=== PATIENT | female | born 1940 | race Caucasian/White ===

== ENCOUNTER → 2016-11-11 | Outpatient (CLI) | payer OTHER ==
[~2016-11-11] MED LIST: ASPI81TA28 PO; CALC-20 PO; HYDR-5688 PO; LEVO75TA5 PO; LPT40 PO; OMEG12006 PO
[2016-11-11 11:34] LABS: AST/SGOT 20 U/L (15-37); BLOOD UREA NITROGEN 19 mg/dl (7-18); BUN/CREATININE RATIO 19.5 (10-20); CALCIUM 9.4 mg/dl (8.5-10.1); CARBON DIOXIDE 25 mmol/L (21-32); CHLORIDE 106 mmol/L (98-107); GLUCOSE 86 mg/dl (70-99); SODIUM 141 mmol/L (136-145)
[2016-11-11 11:46] LABS: ALB/GLOB RATIO 1.1 (0.9-2); ALKALINE PHOSPHATASE 182 U/L (45-117); ALT/SGPT 30 U/L (12-78); CHOLESTEROL 157 mg/dl (0-200); CHOLESTEROL/HDL RATIO 2.3; HDL CHOLESTEROL 69 mg/dl; LDL CHOLESTEROL CALCULATED 76 mg/dl; TRIGLYCERIDES 58 mg/dl (0-150); VERY LOW DENSITY LIPOPROT CALC 12 mg/dl
== END | disposition home or self-care (01) ==
LOC: C.LABBC 08:40
PROVIDERS: ATTEND Internal Medicine Geriatric Medicine
DX: E78.5 Hyperlipidemia, unspecified (principal); E03.9 Hypothyroidism, unspecified

== ENCOUNTER → 2016-11-16 | Outpatient (CLI) | payer OTHER | END | disposition home or self-care (01) | LOC: C.LABBC 12:50 | PROVIDERS: ATTEND Internal Medicine Geriatric Medicine | DX: R74.8 Abnormal levels of other serum enzymes (principal) ==

== ENCOUNTER → 2016-11-26 | Outpatient (CLI) | payer OTHER ==
--- NOTE | 2016-11-26 09:54 | DIAGNOSTIC IMAGING REPORT ---
ULTRASOUND RIGHT UPPER QUADRANT ABDOMEN CLINICAL HISTORY: Elevated hepatic transaminases. COMPARISON STUDY: Abdominal CT dated 02/03/2016. TECHNIQUE: Real-time, grayscale, and color flow sonography of the right upper quadrant of the abdomen was performed. Images are reviewed in the transverse and longitudinal planes. FINDINGS: Liver: The liver is normal in size and echotexture. There is no intrahepatic biliary ductal dilatation. The main portal vein is patent. An 8 mm cyst is incidentally noted in the left lobe adjacent to gallbladder fossa. Gallbladder: The gallbladder is contracted. A 3 mm nonshadowing stone or sludge ball is identified. No shadowing stones are seen. There is no gallbladder wall thickening or pericholecystic fluid. A sonographic Camarena's sign is reportedly absent. The common bile duct measures up to 0.6 cm in diameter. Pancreas: Visualized portions of the pancreatic head and body are normal in appearance. Right kidney: Survey images of the right kidney demonstrate normal size and echotexture. There is no hydronephrosis. Ascites: None. IMPRESSION: 1. The liver is normal in size and echotexture. 2. There is a 3 mm sludge ball versus nonshadowing gallstone. The gallbladder is otherwise normal in appearance. Electronically signed by: Pernell Montanez M.D. 11/26/2016 9:53 AM Dictated Date/Time: 11/26/2016 9:51 AM
== END | disposition home or self-care (01) ==
LOC: C.ULTRBC 08:50
PROVIDERS: ATTEND Internal Medicine Geriatric Medicine
DX: R74.8 Abnormal levels of other serum enzymes (principal)

== ENCOUNTER → 2016-11-29 | Outpatient (CLI) | payer OTHER ==
--- NOTE | 2016-11-30 16:37 | MAMMOGRAPHY REPORT ---
BILATERAL DIGITAL SCREENING MAMMOGRAM TOMOSYNTHESIS WITH CAD: 11/29/2016 CLINICAL HISTORY: Routine screening examination. TECHNIQUE: Breast tomosynthesis in addition to standard 2D mammography was performed. Current study was also evaluated with a Computer Aided Detection (CAD) system. COMPARISON: Comparison is made to exams dated: 10/09/2015 mammogram, 10/07/2014 mammogram, 10/04/2013 mammogram, and 09/02/2011 mammogram - [facility]. BREAST COMPOSITION: There are scattered areas of fibroglandular density in both breasts. FINDINGS: The parenchymal pattern is unchanged. No developing mass, architectural distortion or clu ster of suspicious microcalcifications is seen in either breast. There are scattered benign coarse calcifications in the breasts. IMPRESSION: ACR BI-RADS CATEGORY 2: BENIGN There is no mammographic evidence of malignancy. A 1 year screening mammogram is recommended. The p atient will receive written notification of the results. Approximately 10% of breast cancers are not detected with mammography. A negative mammographic repor t should not delay biopsy if a clinically suggestive mass is present. Ileana Torrez M.D. ay/:11/30/2016 16:29:55 Recruiter: Norma JENKINS)([place]), [facility] letter sent: Normal 1/2 BI-RADS Code: ACR BI-RADS Category 2: Benign
== END | disposition home or self-care (01) ==
LOC: C.MAMM 11:26
PROVIDERS: ATTEND Internal Medicine Geriatric Medicine
DX: Z12.31 Encounter for screening mammogram for malignant neoplasm of breast (principal)

== ENCOUNTER → 2016-12-13 | Outpatient (CLI) | payer OTHER ==
--- NOTE | 2016-12-21 13:06 | CODING QUERY MEDICAL NECESSITY ---
SUPPORTING DIAGNOSIS NEEDED Dr. rFey, A supporting diagnosis is required for the test/procedure performed on this patient in order for us to be reimbursed by the patient's insurance. Please provide a supporting diagnosis for the following test/procedure listed below next to the test name along with your signature. *If there is no additional diagnosis for this patient that would support the following test/procedure please document that below next to the test/procedure. Test(s)/Procedure(s) that require a supporting diagnosis: * ([id number]) DXA BONE DENSITY, AXIAL DIAGNOSIS: DATE OF SERVICE: 12/13/16 Provider Signature: Date: Thank you Joseph Reynolds [facility] Information Management Once completed, please kindly fax back to [phone] For questions please call [phone]
== END | disposition home or self-care (01) ==
LOC: C.MAMM 13:48
PROVIDERS: ATTEND Internal Medicine Geriatric Medicine
DX: S52.90XA Unspecified fracture of unspecified forearm, initial encounter for closed fracture (principal); X58.XXXA Exposure to other specified factors, initial encounter

== ENCOUNTER → 2017-06-27 | Outpatient (CLI) | payer OTHER ==
[~2017-06-27] MED LIST changes: -HYDR-5688 PO
[2017-06-27 14:22] LABS: ALT/SGPT 22 U/L (12-78); BLOOD UREA NITROGEN 25 mg/dl (7-18); BUN/CREATININE RATIO 25.4 (10-20); CALCIUM 9.6 mg/dl (8.5-10.1); CARBON DIOXIDE 26 mmol/L (21-32); CHLORIDE 106 mmol/L (98-107); GLUCOSE 79 mg/dl (70-99); POTASSIUM 4.2 mmol/L (3.5-5.1); SODIUM 140 mmol/L (136-145)
[2017-06-27 14:32] LABS: ALKALINE PHOSPHATASE 73 U/L (45-117); AST/SGOT 21 U/L (15-37); THYROID STIMULATING HORMONE 0.555 uIu/ml (0.300-4.500)
== END | disposition home or self-care (01) ==
LOC: C.LABBC 10:23
PROVIDERS: ATTEND Internal Medicine Geriatric Medicine
DX: E03.9 Hypothyroidism, unspecified (principal); E55.9 Vitamin D deficiency, unspecified; R74.8 Abnormal levels of other serum enzymes

== ENCOUNTER → 2017-10-26 | Outpatient (CLI) | payer OTHER ==
[2017-11-02 14:49] LABS: HERPES SIMPLEX VIRUS CULT NOT ISOLATED (NOT ISOLATED); VARICELLA ZOS VIR IGM AB <=0.90 (<=0.90)
== END | disposition home or self-care (01) ==
LOC: C.LAB1850 14:45
PROVIDERS: ATTEND Obstetrics & Gynecology
DX: N90.89 Other specified noninflammatory disorders of vulva and perineum (principal)

== ENCOUNTER → 2017-10-26 | Outpatient (CLI) | payer OTHER | END | disposition home or self-care (01) | LOC: C.PATHSPEC 16:10 | PROVIDERS: ATTEND Obstetrics & Gynecology | DX: N90.89 Other specified noninflammatory disorders of vulva and perineum (principal) ==

== ENCOUNTER → 2017-12-30 | Outpatient (CLI) | payer OTHER | END | disposition home or self-care (01) | LOC: C.LABSPEC 15:53 | PROVIDERS: ATTEND Obstetrics & Gynecology | DX: N89.8 Other specified noninflammatory disorders of vagina (principal) ==

== ENCOUNTER → 2018-01-13 | Outpatient (CLI) | payer OTHER ==
[2018-01-13 16:41] LABS: BASO % 0.4 %; BASO ABS # 0.02 K/uL (0-0.2); EOS % 5.1 %; EOS ABS # 0.26 K/uL (0-0.5); HEMATOCRIT 40.5 % (37-47); HEMOGLOBIN 13.4 g/dL (12.0-16.0); IG# 0.02 K/uL (0.00-0.02); LYMPH % 26.7 %; LYMPH ABS # 1.35 K/uL (1.2-3.4); MEAN CELL VOLUME 92.7 fL (80-100); MEAN CORPUSCULAR HEMOGLOBIN 30.7 pg (25-34); MEAN CORPUSCULAR HGB CONC 33.1 g/dl (32-36); MEAN PLATELET VOLUME 8.6 fL (7.4-10.4); MONO % 9.3 %; MONO ABS # 0.47 K/uL (0.11-0.59); NEUT % 58.1 %; NEUT ABS # 2.93 K/uL (1.4-6.5); PLATELET COUNT 246 K/uL (130-400); RED CELL DISTRIBUTION WIDTH CV 13.4 % (11.5-14.5); RED CELL DISTRIBUTION WIDTH SD 45.6 fL (36.4-46.3); WHITE BLOOD COUNT 5.05 K/uL (4.8-10.8)
[2018-01-13 17:13] LABS: ALBUMIN 3.6 gm/dl (3.4-5.0); AST/SGOT 24 U/L (15-37); BLOOD UREA NITROGEN 19 mg/dl (7-18); CARBON DIOXIDE 26 mmol/L (21-32); CREATININE 0.98 mg/dl (0.60-1.20); GLUCOSE 83 mg/dl (70-99); POTASSIUM 4.1 mmol/L (3.5-5.1); SODIUM 139 mmol/L (136-145)
[2018-01-13 17:25] LABS: ALKALINE PHOSPHATASE 82 U/L (45-117); ALT/SGPT 36 U/L (12-78); CHOLESTEROL 188 mg/dl (0-200); LDL CHOLESTEROL CALCULATED 97 mg/dl; TOTAL PROTEIN 7.1 gm/dl (6.4-8.2)
== END | disposition home or self-care (01) ==
LOC: C.LABBC 12:42
PROVIDERS: ATTEND Internal Medicine Geriatric Medicine
DX: E78.5 Hyperlipidemia, unspecified (principal); E03.9 Hypothyroidism, unspecified; M19.90 Unspecified osteoarthritis, unspecified site; K82.8 Other specified diseases of gallbladder

== ENCOUNTER → 2018-02-24 | Outpatient (CLI) | payer OTHER ==
--- NOTE | 2018-02-27 07:50 | MAMMOGRAPHY REPORT ---
BILATERAL DIGITAL SCREENING MAMMOGRAM TOMOSYNTHESIS WITH CAD: 02/24/2018 CLINICAL HISTORY: Routine screening. Patient has no complaints. TECHNIQUE: Breast tomosynthesis in addition to standard 2D mammography was performed. Current study was also evaluated with a Computer Aided Detection (CAD) system. COMPARISON: Comparison is made to exams dated: 11/29/2016 mammogram, 10/09/2015 mammogram, 10/07/2014 mammogram, 10/04/2013 mammogram, 09/27/2012 mammogram, and 09/02/2011 mammogram - [facility]. BREAST COMPOSITION: There are scattered areas of fibroglandular density in both breasts. FINDINGS: No suspicious masses, calcifications, or areas of architectural distortion are noted in ei ther breast. There has been no significant interval change compared to prior exams. Scattered bilater al benign-appearing calcifications are not significantly changed. IMPRESSION: ACR BI-RADS CATEGORY 2: BENIGN There is no mammographic evidence of malignancy. A 1 year screening mammogram is recommended. The pa tient will receive written notification of the results. Approximately 10% of breast cancers are not detected with mammography. A negative mammographic report should not delay biopsy if a clinically suggestive mass is present. Corazon Villegas M.D. /:02/24/2018 12:14:34 Brusher Tender: Do JENKINS)(M), [facility] letter sent: Normal 1/2 BI-RADS Code: ACR BI-RADS Category 2: Benign
== END | disposition home or self-care (01) ==
LOC: C.MAMM 11:33
PROVIDERS: ATTEND Internal Medicine Geriatric Medicine
DX: Z12.31 Encounter for screening mammogram for malignant neoplasm of breast (principal)

== ENCOUNTER 2018-03-06 14:26 | Inpatient (IN) | payer OTHER ==
[2018-02-28 09:55] VITALS: BMI 26.0
[~2018-03-06] VITALS: Ht 157.5 cm; Wt 67.1 kg
[2018-03-06 14:44] VITALS: BMI 26.0
--- NOTE | 2018-03-06 14:56 | Endo History and Physical ---
History & Physical Date of Service: March 06, 2018. Chief Complaint: ABDOMINAL PAIN Referring Physician: DR. LOURDES [place] History of Present Illness 78 yo CF who presents for colonoscopy secondary to mid-abdominal pain. Past Surgical History Hx Cardiac Surgery: No Hx Internal Defibrillator: No Hx Pacemaker: No Hx Abdominal Surgery: Yes (D/C 40+, APPY, CINDY) Hx of Implantable Prosthesis: No Hx Cancer Surgery: No Hx Thoracic Surgery: No Hx Orthopedic: Yes (L WRIST-PLATE/SCREWS) Hx Urinary Tract Surgery: No Family History Colon CA, Polyp Social History Smoking Status: Never Smoker Hx Substance Use: No Hx Alcohol Use: No Allergies Coded Allergies: No Known Allergies (Unverified , 03/06/18) Current Medications Reported Home Medications Medications Dose Route/Sig Max Daily Dose Days Date Category Calcium 600 + D (Calcium Carbonate-Vitamin D) Unknown Strength Tab 2 Tab PO DAILY 08/17/16 Reported Aspirin Ec (Aspirin) 81 Mg Tab 81 Mg PO DAILY 08/17/16 Reported [place] 3 ([place]-3 Fatty Acids) 1 Cap Cap 2 Cap PO DAILY 08/17/16 Reported Lipitor (Atorvastatin Calcium) 40 Mg Tab 40 Mg PO DAILY 08/17/16 Reported Levothyroxine Sodium 75 Mcg Tab 75 Mcg PO DAILY 02/03/16 Reported Vital Signs Weight (Kilograms): 65.45 Height (Feet): 5 Height (Inches): 2 Physical Exam General Appearance: WD/WN, no apparent distress Respiratory/Chest: Auscultation: breath sounds normal Cardiovascular: Heart Auscultation: RRR Abdomen: Bowel Sounds: normal Inspection & Palpation: soft, non-distended, no tenderness, guarding & rebound Assessment and Plan Assessment: 78 yo CF who presents for colonoscopy secondary to mid-abdominal pain. Plan: Proceed with colonoscopy.
--- NOTE | 2018-03-06 16:03 | Discharge Instructions ---
Endoscopy Patient Instructions Date / Procedure(s) Performed March 06, 2018. Colonoscopy Allergy Information Coded Allergies: No Known Allergies (Unverified , 03/06/18) Discharge Date / Findings March 06, 2018. Sigmoid Colon mass s/p biopsies and tattoo Internal hemorrhoids Medication Instructions OK to resume all medications today as prescribed Reported Home Medications Medications Dose Route/Sig Max Daily Dose Days Date Category Calcium 600 + D (Calcium Carbonate-Vitamin D) Unknown Strength Tab 2 Tab PO DAILY 08/17/16 Reported Aspirin Ec (Aspirin) 81 Mg Tab 81 Mg PO DAILY 08/17/16 Reported [place] 3 ([place]-3 Fatty Acids) 1 Cap Cap 2 Cap PO DAILY 08/17/16 Reported Lipitor (Atorvastatin Calcium) 40 Mg Tab 40 Mg PO DAILY 08/17/16 Reported Levothyroxine Sodium 75 Mcg Tab 75 Mcg PO DAILY 02/03/16 Reported Provider Instructions Activity Restrictions - No exercising or heavy lifting for 24 hours. - Do not drink alcohol the day of the procedure. - Do not drive a car or operate machinery until the day after the procedure. - Do not make any important decisions or sign important papers in 24 hours after the procedure. Following Day: - Return to full activity which may include returning to work/school. Diet Start your diet with liquids and light foods (jello, soup, juice, toast). Then eat your usual diet if not nauseated. Treatment For Common After Affects For mild abdominal pain, bloating, or excessive gas: - Rest - Eat lightly - Lie on right side Follow-Up Information Recommend patient be admitted to [facility] for further evaluation Anesthesia Information What You Should Know You have had a procedure that required some medicine to reduce anxiety and discomfort. This treatment is called moderate sedation. After receiving the treatment, you may be sleepy, but you will be able to breathe on your own. The effects of the treatment may last for several hours. Follow these instructions along with Activity/Diet recommendations noted above: * Do NOT do anything where dizziness or clumsiness would be dangerous. * Rest quietly at home today, then you can be up and about tomorrow. * Have a responsible person stay with you the rest of today. * You may have had an I.V. today. If so, you may take the dressing off later today. Recommendations Call your doctor if: * Trouble breathing * Continuous vomiting for more than 24 hours * Temperature above 101 degrees * Severe abdominal pain or bloating * Pain not relieved by pain medicine ordered * There is increased drainage or redness from any incision * A large amount of rectal bleeding greater than 2-3 tablespoons. (If you had a polyp/s removed or have hemorrhoids, a small amount of blood - from the rectum is to be expected.) * You have any unanswered questions or concerns. IN THE EVENT OF A SERIOUS EMERGENCY, GO TO THE NEAREST EMERGENCY ROOM Your discharge instructions were prepared by provider Tyron Harrington. Patient Instructions Signature Page Yue Weiss Patient (or Guardian) Signature/Date: I have read and understand the instructions given to me by my caregivers. Caregiver/RN/Doctor Signature/Date: The above-named patient and/or guardian has received patient instructions on this date. + Original Patient Signature Page (only) stays with chart. Please make copy for patient.
--- NOTE | 2018-03-06 16:15 | Anesthesiology Progress Note ---
Anesthesia Post Op Note Date & Time March 06, 2018 at 16:14 Vital Signs Pain Intensity: 0 Vital Signs Past 12 Hours Date Time Temp Pulse Resp B/P (MAP) Pulse Ox O2 Delivery O2 Flow Rate FiO2 03/06/18 16:03 78 16 114/67 (83) 96 Room Air 03/06/18 14:56 36.5 89 18 140/86 (104) 95 Room Air Notes Mental Status: alert / awake / arousable, participated in evaluation Pt Amnestic to Procedure: Yes Nausea / Vomiting: adequately controlled Pain: adequately controlled Airway Patency, RR, SpO2: stable & adequate BP & HR: stable & adequate Hydration State: stable & adequate Anesthetic Complications: no major complications apparent
--- NOTE | 2018-03-06 16:37 | GI REPORT ---
Patient Name: Yue Weiss Procedure Date: 03/06/2018 3:16 PM Date of : 1940 Admit Type: Outpatient Age: 78 Gender: Female Attending MD: Tyron Harrington DO Procedure: Colonoscopy Providers: Tyron Harrington DO Referring MD: Isiah Frey Indications: Periumbilical abdominal pain Medicines: Monitored Anesthesia Care Complications: No immediate complications. Estimated Blood Loss: Estimated blood loss: none. Procedure: Pre-Anesthesia Assessment: - Prior to the procedure, a History and Physical was performed, and patient medications and allergies were reviewed. The patient's tolerance of previous anesthesia was also reviewed. The risks and benefits of the procedure and the sedation options and risks were discussed with the patient. All questions were answered, and informed consent was obtained. Prior Anticoagulants: The patient has taken aspirin, last dose was 3 days prior to procedure. ASA Grade Assessment: II - A patient with mild systemic disease. After reviewing the risks and benefits, the patient was deemed in satisfactory condition to undergo the procedure. After I obtained informed consent, the scope was passed under direct vision. Throughout the procedure, the patient's blood pressure, pulse, and oxygen saturations were monitored continuously. The scope was introduced through the anus with the intention of advancing to the ileum. The scope was advanced to the sigmoid colon before the procedure was aborted. Medications were given. The On-site loaner was introduced through the and advanced to. The colonoscopy was performed without difficulty. The patient tolerated the procedure well. The quality of the bowel preparation was fair. The rectum was photographed. Findings: The perianal and digital rectal examinations were normal. An infiltrative partially obstructing large mass was found in the sigmoid colon. The mass was circumferential. In addition, its diameter measured twenty mm. Oozing was present. Biopsies were taken with a cold forceps for histology. Area was tattooed with an injection of 4 mL of Jasmina ink at the distal margin. Non-bleeding internal hemorrhoids were found during retroflexion. The hemorrhoids were small. Impression: - Preparation of the colon was fair. 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 Biopsied. Tattooed. - Non-bleeding internal hemorrhoids. Recommendation: - Admit the patient to [facility] for ongoing care. - Clear liquid diet. - Perform a CT scan (computed tomography) of chest with contrast, abdomen with contrast and pelvis with contrast today. - Check liver enzymes (AST, ALT, alkaline phosphatase, bilirubin), hemogram with white blood cell count and platelets, electrolyte panel, PT/INR and CEA in the morning. Tyron Harrington, DO 03/06/2018 4:37:44 PM This report has been signed electronically. Note Initiated On: 03/06/2018 3:16 PM Number of Addenda: 0 I attest to the content of the Intraoperative Record and orders documented therein, exceptions below {[id number]}
[2018-03-06] MEDS ORDERED: ONDANSETRON INJ 2 MG/ML 2 ML VIAL IV PRN (16:45)
[2018-03-06] MEDS ORDERED: HYDROmorphone INJ 0.5 MG/0.5 ML SYR IV PRN (17:00)
[2018-03-06 17:40] VITALS: Ht 157.5 cm; Wt 67.1 kg
[2018-03-06 17:56] VITALS: BP 139/78; PULSE 95; TEMP 36.7; O2SAT 97
[2018-03-06 18:12] LABS: BASO % 0.3 %; BASO ABS # 0.02 K/uL (0-0.2); EOS % 0.8 %; EOS ABS # 0.06 K/uL (0-0.5); HEMOGLOBIN 13.2 g/dL (12.0-16.0); IG# 0.01 K/uL (0.00-0.02); LYMPH ABS # 1.21 K/uL (1.2-3.4); MEAN CELL VOLUME 89.7 fL (80-100); MEAN CORPUSCULAR HEMOGLOBIN 30.3 pg (25-34); MEAN CORPUSCULAR HGB CONC 33.8 g/dl (32-36); MEAN PLATELET VOLUME 8.1 fL (7.4-10.4); MONO % 4.5 %; MONO ABS # 0.32 K/uL (0.11-0.59); NEUT % 77.3 %; PLATELET COUNT 212 K/uL (130-400); RED CELL DISTRIBUTION WIDTH CV 13.2 % (11.5-14.5); RED CELL DISTRIBUTION WIDTH SD 43.1 fL (36.4-46.3); WHITE BLOOD COUNT 7.12 K/uL (4.8-10.8)
[2018-03-06] MEDS: D5NSS + 20MEQ KCL 1,000 ML IV SCH (18:35)
[2018-03-06 18:36] LABS: ALBUMIN 3.7 gm/dl (3.4-5.0); CALCIUM 8.9 mg/dl (8.5-10.1); CREATININE 0.94 mg/dl (0.60-1.20); POTASSIUM 3.6 mmol/L (3.5-5.1)
[2018-03-06 18:39] LABS: TOTAL PROTEIN 7.2 gm/dl (6.4-8.2)
--- NOTE | 2018-03-06 18:48 | History and Physical ---
History & Physical Date & Time of Service: March 06, 2018 at 18:33 Chief Complaint: Abdominal Pain, Colonic Mass Primary Care Physician: Isiah Frey M.D. History of Present Illness Source: patient, hospital records, other 78 y/o F Hx hypothyroidism. The pt presented for a colonoscopy today due to persistent lower quadrant abdominal pain. Unfortunately, a large, nearly- obstructing mass was seen in the sigmoid colon. She was referred for admission and evaluation by general surgery. The pt denies nausea, vomiting, diarrhea or fevers. Past Medical/Surgical History 1) Hypothyroidism Family History Daughter with history of GI carcinoid tumor Social History Does not smoke or drink alcohol - maintains full independence Smoking Status: Never Smoker Drug Use: none Marital Status: Occupational Status: retired Allergies Coded Allergies: No Known Allergies (Unverified , 03/06/18) Home Medications Scheduled Aspirin (Aspirin Ec), 81 MG PO DAILY Atorvastatin (Lipitor), 40 MG PO DAILY Calcium Carbonate-Vitamin D (Calcium 600 + D), 2 TAB PO DAILY Levothyroxine Sodium (Levothyroxine Sodium), 75 MCG PO DAILY [place]-3 Fatty Acids ([place] 3), 2 CAP PO DAILY Review of Systems Constitutional: No fever, No chills, No sweats Eyes: No worsening of vision ENT: No hearing loss, No unusual epistaxis, No nasal symptoms Respiratory: No cough, No sputum, No wheezing Cardiovascular: No chest pain, No orthopnea, No PND Abdomen: + pain, No nausea, No vomiting, No diarrhea Musculoskeletal: No joint pain Genitourinary - Female: No dysuria, No urinary frequency Neurologic: No memory loss, No paralysis, No weakness Psychiatric: No depression symptoms Endocrine: No fatigue Hematologic / Lymphatic: No abnormal bleeding/bruising Integumentary: No rash Allergic / Immunologic: No environmental allergies Physical Exam Vital Signs Date Time Temp Pulse Resp B/P (MAP) Pulse Ox O2 Delivery O2 Flow Rate FiO2 03/06/18 17:56 36.7 95 18 139/78 (98) 97 Room Air 03/06/18 16:38 85 18 134/67 (89) 94 Room Air 03/06/18 16:28 72 16 142/76 (98) 94 Room Air 03/06/18 16:03 78 16 114/67 (83) 96 Room Air 03/06/18 14:56 36.5 89 18 140/86 (104) 95 Room Air General Appearance: WD/WN, no apparent distress, + pertinent finding (Well appearing, elderly female in no distress - AAO x 3 ) Head: normocephalic Eyes: normal inspection ENT: normal ENT inspection, pharynx normal Neck: supple, no JVD Respiratory/Chest: chest non-tender, lungs clear, normal breath sounds Cardiovascular: regular rate, rhythm, no edema Abdomen/GI: normal bowel sounds, non tender, soft Back: normal inspection, no CVA tenderness Extremities/Musculoskelatal: normal inspection, no calf tenderness 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, no motor/sensory deficits, alert, oriented x 3 Skin: normal color Diagnostics Laboratory Results Results Past 24 Hours Test 03/06/18 16:52 03/06/18 17:58 03/06/18 17:59 Range/Units Prothrombin Time 10.5 9.0-12.0 SECONDS Prothromb Time International Ratio 1.0 0.9-1.1 White Blood Count 7.12 4.8-10.8 K/uL Red Blood Count 4.35 4.2-5.4 M/uL Hemoglobin 13.2 12.0-16.0 g/dL Hematocrit 39.0 37-47 % Mean Corpuscular Volume 89.7 80-100 fL Mean Corpuscular Hemoglobin 30.3 25-34 pg Mean Corpuscular Hemoglobin Concent 33.8 32-36 g/dl Platelet Count 212 130-400 K/uL Mean Platelet Volume 8.1 7.4-10.4 fL Neutrophils (%) (Auto) 77.3 % Lymphocytes (%) (Auto) 17.0 % Monocytes (%) (Auto) 4.5 % Eosinophils (%) (Auto) 0.8 % Basophils (%) (Auto) 0.3 % Neutrophils # (Auto) 5.50 1.4-6.5 K/uL Lymphocytes # (Auto) 1.21 1.2-3.4 K/uL Monocytes # (Auto) 0.32 0.11-0.59 K/uL Eosinophils # (Auto) 0.06 0-0.5 K/uL Basophils # (Auto) 0.02 0-0.2 K/uL RDW Standard Deviation 43.1 36.4-46.3 fL RDW Coefficient of Variation 13.2 11.5-14.5 % Immature Granulocyte % (Auto) 0.1 % Immature Granulocyte # (Auto) 0.01 0.00-0.02 K/uL Impression Assessment and Plan 78 y/o F Hx hypothyroidism. The pt presented for a colonoscopy today due to persistent lower quadrant abdominal pain. Unfortunately, a large, nearly- obstructing mass was seen in the sigmoid colon. She was referred for admission and evaluation by general surgery. The pt denies nausea, vomiting, diarrhea or fevers. 1) Sigmoid mass - pt to be evaluated by the surgical service as she may require excision. A CT with contrast is ordered to further assess the mass. She will be kept NPO - IVF and pain control provided. She does not carry significant risk for surgery. Without EKG assessment her RCRI is 0.4%. EKG is pending for baseline assessment. 2) Hypothyroidism - daily dose converted at 50% Full code - SCDs Total time for this admit including review of labs, meds, imaging, records - discussion with pt, family and GI attending - 37 min Resuscitation Status VTE Prophylaxis Will order VTE Prophylaxis: Yes
[2018-03-06 18:55] VITALS: BP 150/82
[2018-03-06 19:55] VITALS: BP 155/86; PULSE 95; O2SAT 97
--- NOTE | 2018-03-06 21:19 | Surgery Consultation ---
Consultation Date of Consultation: March 06, 2018. Attending Physician: Mian Hendricks M.D. History of Present Illness I got a call for consult sigmoid colon mass, pt is a 78 year old female who had colonoscopy with finding sigmoid colon mass with biopsy by Gi case today, pt said she has some lower abdominal pain sometime, no nausea, no vomiting, no weight loss, no bloody stool, pt had other colonoscopy 7 years ago. Past Medical/Surgical History Medical Problems: (1) Fracture of left distal radius Status: Acute (2) Hyperlipemia Status: Chronic (3) Hypothyroidism Nos Status: Chronic Social History Smoking Status: Never Smoker Smokeless Tobacco Use: No Alcohol Use: none Drug Use: none Marital Status: Housing Status: lives alone Occupation Status: retired Allergies Coded Allergies: No Known Allergies (Unverified , 03/06/18) Home Medications Scheduled Aspirin (Aspirin Ec), 81 MG PO DAILY Atorvastatin (Lipitor), 40 MG PO DAILY Calcium Carbonate-Vitamin D (Calcium 600 + D), 2 TAB PO DAILY Levothyroxine Sodium (Levothyroxine Sodium), 75 MCG PO DAILY [place]-3 Fatty Acids ([place] 3), 2 CAP PO DAILY Current Inpatient Medications Current Inpatient Medications Medications (Trade) Dose Ordered Sig/Laura Route Start Time Stop Time Status Last Admin Dose Admin Ondansetron HCl (Zofran Inj) 4 mg Q6H PRN IV 03/06/18 16:45 04/05/18 16:44 Hydromorphone HCl (Dilaudid Inj) 0.5 mg Q3H PRN IV 03/06/18 17:00 03/20/18 16:59 Potassium Chloride/Dextrose/ Sod Cl 1,000 ml @ 80 mls/hr [id number] IV 03/06/18 18:00 03/07/18 18:59 03/06/18 18:35 80 MLS/HR Review of Systems Constitutional: No fever, No chills, No sweats, No weight loss, No weakness, No fatigue, No problem reported Eyes: No worsening of vision, No eye pain, No redness, No discharge, No diplopia, No problem reported ENT: No hearing loss, No unusual epistaxis, No nasal symptoms, No sore throat, No tinnitus, No dental problems, No trouble swallowing, No problem reported Respiratory: No cough, No sputum, No wheezing, No shortness of breath, No dyspnea on exertion, No dyspnea at rest, No hemoptysis, No problem reported Abdomen: + pain Musculoskeletal: No joint pain, No muscle pain, No swelling, No calf pain, No problem reported Genitourinary - Female: No dysuria, No urinary frequency, No urinary urgency, No urinary incontinence, No urinary retention, No hematuria, No dysmenorrhea, No menorrhagia, No metrorrhagia, No rash, No vaginal bleeding, No vaginal discharge, No vaginal itching, No vulvodynia, No , No problem reported Neurologic: No memory loss, No paralysis, No weakness, No numbness/tingling, No vertigo, No balance problems, No problem reported Psychiatric: No depression symptoms, No anhedonism, No anxiety, No insomnia, No substance abuse, No problem reported Endocrine: No fatigue, No excessive thirst, No excessive urination, No problem reported Hematologic / Lymphatic: No abnormal bleeding/bruising, No clotting problems, No swollen lymph nodes, No night sweats, No problem reported Physical Exam Date Time Temp Pulse Resp B/P (MAP) Pulse Ox O2 Delivery O2 Flow Rate FiO2 03/06/18 19:55 95 18 155/86 (109) 97 Room Air 03/06/18 18:55 18 150/82 (104) 03/06/18 17:56 36.7 95 18 139/78 (98) 97 Room Air 03/06/18 17:40 Room Air 03/06/18 17:40 Room Air 03/06/18 17:40 Room Air 03/06/18 16:38 85 18 134/67 (89) 94 Room Air 03/06/18 16:28 72 16 142/76 (98) 94 Room Air 03/06/18 16:03 78 16 114/67 (83) 96 Room Air 03/06/18 14:56 36.5 89 18 140/86 (104) 95 Room Air General Appearance: WD/WN, no apparent distress Head: normocephalic Eyes: normal inspection ENT: normal ENT inspection Neck: supple, no JVD Respiratory/Chest: chest non-tender, lungs clear, normal breath sounds Cardiovascular: regular rate, rhythm, no edema, no gallop, no JVD, no murmur Abdomen/GI: normal bowel sounds, non tender, soft, no organomegaly, no pulsatile mass, normal rectal exam Extremities/Musculoskelatal: normal inspection, no calf tenderness, normal capillary refill Neurologic/Psych: no motor/sensory deficits, alert, normal mood/affect, oriented x 3 Skin: normal color, warm/dry, no rash Laboratory Results Last 24 Hours Test 03/06/18 17:58 03/06/18 17:59 Prothrombin Time 10.5 SECONDS Prothromb Time International Ratio 1.0 Carcinoembryonic Antigen 3.7 ng/ml White Blood Count 7.12 K/uL Red Blood Count 4.35 M/uL Hemoglobin 13.2 g/dL Hematocrit 39.0 % Mean Corpuscular Volume 89.7 fL Mean Corpuscular Hemoglobin 30.3 pg Mean Corpuscular Hemoglobin Concent 33.8 g/dl Platelet Count 212 K/uL Mean Platelet Volume 8.1 fL Neutrophils (%) (Auto) 77.3 % Lymphocytes (%) (Auto) 17.0 % Monocytes (%) (Auto) 4.5 % Eosinophils (%) (Auto) 0.8 % Basophils (%) (Auto) 0.3 % Neutrophils # (Auto) 5.50 K/uL Lymphocytes # (Auto) 1.21 K/uL Monocytes # (Auto) 0.32 K/uL Eosinophils # (Auto) 0.06 K/uL Basophils # (Auto) 0.02 K/uL RDW Standard Deviation 43.1 fL RDW Coefficient of Variation 13.2 % Immature Granulocyte % (Auto) 0.1 % Immature Granulocyte # (Auto) 0.01 K/uL Sodium Level 141 mmol/L Potassium Level 3.6 mmol/L Chloride Level 105 mmol/L Carbon Dioxide Level 28 mmol/L Anion Gap 8.0 mmol/L Blood Urea Nitrogen 16 mg/dl Creatinine 0.94 mg/dl Est Creatinine Clear Calc Drug Dose 43.1 ml/min Estimated GFR () 66.9 Estimated GFR (Non- 57.7 BUN/Creatinine Ratio 16.5 Random Glucose 85 mg/dl Calcium Level 8.9 mg/dl Total Bilirubin 0.4 mg/dl Aspartate Amino Transf (AST/SGOT) 18 U/L Alanine Aminotransferase (ALT/SGPT) 21 U/L Alkaline Phosphatase 74 U/L Total Protein 7.2 gm/dl Albumin 3.7 gm/dl Globulin 3.5 gm/dl Albumin/Globulin Ratio 1.1 Assessment & Plan Assessment: pt is a 78 year old female who had colonoscopy with finding sigmoid colon mass, biopsy done, pathology is pending, pt will have CT scan and labs for further work up. once I discuss about possible sigmoid colon resection, pt and her family members ( one daughter is nurse) want colorectal surgeon to do surgery, I agree with that pt should be referred to colorectal surgeon.
[2018-03-06 22:58] VITALS: BP 151/89; PULSE 95; TEMP 36.9; O2SAT 97
[2018-03-07] MEDS ORDERED: OPTIRAY 320 IV PRN
[2018-03-07] MEDS ORDERED: TRAZODONE HCL 50 MG TAB PO ONE (01:15)
[2018-03-07] MEDS: D5NSS + 20MEQ KCL 1,000 ML IV SCH (06:12)
[2018-03-07 07:35] LABS: HEMATOCRIT 36.2 % (37-47); HEMOGLOBIN 12.3 g/dL (12.0-16.0); MEAN CELL VOLUME 89.2 fL (80-100); MEAN CORPUSCULAR HEMOGLOBIN 30.3 pg (25-34); MEAN PLATELET VOLUME 8.1 fL (7.4-10.4); PLATELET COUNT 203 K/uL (130-400); RED CELL DISTRIBUTION WIDTH CV 13.4 % (11.5-14.5); RED CELL DISTRIBUTION WIDTH SD 43.9 fL (36.4-46.3); WHITE BLOOD COUNT 5.55 K/uL (4.8-10.8)
[2018-03-07 07:45] VITALS: BP 141/72; PULSE 61; TEMP 36.9; O2SAT 95
--- NOTE | 2018-03-07 07:48 | DIAGNOSTIC IMAGING REPORT ---
(CHEST) THORAX WITH AND W/O CLINICAL HISTORY: 78 years-old Female presenting with Sigmoid colon mass on Colonoscopy. TECHNIQUE: Multidetector CT imaging of the chest was performed without the use of intravenous contrast. IV contrast: 93 mL of Optiray 320. A dose lowering technique was used consistent with the principles of ALARA (as low as reasonably achievable). COMPARISON: Chest x-ray from 03/19/2016. CT DOSE (mGy.cm): The estimated cumulative dose is 507.[address] abdomen and pelvis. FINDINGS: Financial Compliance Manager topogram: Unremarkable. On soft tissue windows, diminutive thyroid. No axillary, supraclavicular, hilar, or mediastinal lymphadenopathy. Normal aorta. Top normal heart size. No pericardial or pleural effusion. Upper abdomen normal. On lung windows, minimal dependent changes likely atelectasis. No other focal nodule or infiltrate. Airways patent. On bone windows, normal osseous structures. IMPRESSION: 1. No acute intrathoracic pathology. No intrathoracic metastatic disease. No lymphadenopathy. Electronically signed by: James Lowe M.D. 03/07/2018 7:47 AM Dictated Date/Time: 03/07/2018 6:57 AM
[2018-03-07 08:13] LABS: CALCIUM 8.3 mg/dl (8.5-10.1); CREATININE 0.82 mg/dl (0.60-1.20); POTASSIUM 3.4 mmol/L (3.5-5.1)
[2018-03-07] MEDS ORDERED: POTASSIUM CHLORIDE 10 MEQ TABCR PO STA (08:17)
--- NOTE | 2018-03-07 08:49 | DIAGNOSTIC IMAGING REPORT ---
ABDOMEN AND PELVIS CT WITH IV AND ORAL CONTRAST CT DOSE: 507.00 mGy.cm HISTORY: Sigmoid colon mass on colonoscopy TECHNIQUE: Multiaxial CT images of the abdomen and pelvis were performed following the use of intravenous and oral contrast. A dose lowering technique was utilized adhering to the principles of ALARA. COMPARISON STUDY: Abdomen and pelvis CT 02/03/2016. FINDINGS: Mild dependent changes seen at the lung bases. No pneumoperitoneum. No pneumatosis. No suspicious lytic or blastic osseous lesions. There is a 7 mm hypodense lesion within the liver on image 75. This is stable compared to the prior study and likely represents a cyst. No new hepatic masses identified. The gallbladder, pancreas, spleen, and adrenal glands are unremarkable. A 4 mm hypodense lesion within the lower pole of the right kidney and within the interpolar region of the left kidney. These are too small to characterize but statistically represents a cyst. No hydronephrosis. No retroperitoneal lymphadenopathy. The bladder, uterus, bilateral adnexa are unremarkable. Mild mucosal hyperenhancement and bowel wall thickening within the distal sigmoid colon with minimal surrounding fat stranding. This is best seen on image 314. There are few adjacent prominent pericolonic lymph nodes with the largest measuring 9 mm on image 286. IMPRESSION: 1. There is mucosal hyperenhancement and mild bowel wall thickening within the distal sigmoid colon. There is associated minimal pericolonic fat stranding and a few mildly enlarged pericolonic lymph nodes. This could represent the reported sigmoid colon mass. An inflammatory/infectious process could also have a similar appearance. 2. No evidence for bowel obstruction. Electronically signed by: Toñito Chamorro M.D. 03/07/2018 8:48 AM Dictated Date/Time: 03/07/2018 8:21 AM
--- NOTE | 2018-03-07 10:38 | Anesthesiology Progress Note ---
Anesthesia Post Op Note Date & Time March 07, 2018 at 10:37 Vital Signs Pain Intensity: 0.0 Vital Signs Past 12 Hours Date Time Temp Pulse Resp B/P (MAP) Pulse Ox O2 Delivery O2 Flow Rate FiO2 03/07/18 10:20 Room Air 03/07/18 07:45 36.9 61 18 141/72 (95) 95 Room Air 03/07/18 00:40 Room Air 03/06/18 22:58 36.9 95 18 151/89 (109) 97 Room Air Notes Mental Status: alert / awake / arousable, participated in evaluation Pt Amnestic to Procedure: Yes Nausea / Vomiting: adequately controlled Pain: adequately controlled Airway Patency, RR, SpO2: stable & adequate BP & HR: stable & adequate Hydration State: stable & adequate Anesthetic Complications: no major complications apparent
--- NOTE | 2018-03-07 10:50 | Discharge Instructions ---
Discharge Instructions Date of Service March 07, 2018. Admission Reason for Admission: Abdominal Pain, Colonic Mass Discharge Discharge Diagnosis / Problem: Sigmoid colon mass Discharge Goals Goal(s): Improve disease control, Diagnostic testing, Therapeutic intervention Activity Recommendations Activity Limitations: resume your previous activity Shower/Bathe: no limitations . Instructions / Follow-Up Instructions / Follow-Up Your admitted for further evaluation after a sigmoid colon mass was found on your colonoscopy. You had a CT scan of your chest, abdomen, and pelvis. Arrangements were made for you to follow-up with the colorectal surgeon, Dr. Garcia, at [facility] in [place] for 03/08/18. Her office will be contacting you today with the time of the appointment and instructions. Please do not take your aspirin or fish oil in preparation for surgery early next week as they are blood thinners. He should remain on a low fiber diet. If you develop signs of severe abdominal pain, nausea, vomiting, or blood in your stool, please go to the closest emergency room. Please follow-up with your PCP within 1-2 weeks as well. Current Hospital Diet Patient's current hospital diet: Low Fiber Diet Discharge Diet Recommended Diet: Low Fiber Diet Procedures Procedures Performed: Colonoscopy W/Biopsies and tattoo CT chest CT abdomen/pelvis Pending Studies Studies pending at discharge: yes List of pending studies: Pathology from sigmoid colon biopsy Laboratory Results Last 24 Hours Test 03/06/18 17:58 03/06/18 17:59 03/07/18 07:03 Prothrombin Time 10.5 SECONDS 10.6 SECONDS Prothromb Time International Ratio 1.0 1.0 Carcinoembryonic Antigen 3.7 ng/ml White Blood Count 7.12 K/uL 5.55 K/uL Red Blood Count 4.35 M/uL 4.06 M/uL Hemoglobin 13.2 g/dL 12.3 g/dL Hematocrit 39.0 % 36.2 % Mean Corpuscular Volume 89.7 fL 89.2 fL Mean Corpuscular Hemoglobin 30.3 pg 30.3 pg Mean Corpuscular Hemoglobin Concent 33.8 g/dl 34.0 g/dl Platelet Count 212 K/uL 203 K/uL Mean Platelet Volume 8.1 fL 8.1 fL Neutrophils (%) (Auto) 77.3 % Lymphocytes (%) (Auto) 17.0 % Monocytes (%) (Auto) 4.5 % Eosinophils (%) (Auto) 0.8 % Basophils (%) (Auto) 0.3 % Neutrophils # (Auto) 5.50 K/uL Lymphocytes # (Auto) 1.21 K/uL Monocytes # (Auto) 0.32 K/uL Eosinophils # (Auto) 0.06 K/uL Basophils # (Auto) 0.02 K/uL RDW Standard Deviation 43.1 fL 43.9 fL RDW Coefficient of Variation 13.2 % 13.4 % Immature Granulocyte % (Auto) 0.1 % Immature Granulocyte # (Auto) 0.01 K/uL Sodium Level 141 mmol/L 142 mmol/L Potassium Level 3.6 mmol/L 3.4 mmol/L Chloride Level 105 mmol/L 107 mmol/L Carbon Dioxide Level 28 mmol/L 28 mmol/L Anion Gap 8.0 mmol/L 7.0 mmol/L Blood Urea Nitrogen 16 mg/dl 9 mg/dl Creatinine 0.94 mg/dl 0.82 mg/dl Est Creatinine Clear Calc Drug Dose 43.1 ml/min 50.0 ml/min Estimated GFR () 66.9 78.9 Estimated GFR (Non- 57.7 68.1 BUN/Creatinine Ratio 16.5 10.7 Random Glucose 85 mg/dl 100 mg/dl Calcium Level 8.9 mg/dl 8.3 mg/dl Total Bilirubin 0.4 mg/dl Aspartate Amino Transf (AST/SGOT) 18 U/L Alanine Aminotransferase (ALT/SGPT) 21 U/L Alkaline Phosphatase 74 U/L Total Protein 7.2 gm/dl Albumin 3.7 gm/dl Globulin 3.5 gm/dl Albumin/Globulin Ratio 1.1 Magnesium Level 1.9 mg/dl Lipid Panel Test 01/13/18 12:46 Range/Units Triglycerides Level 109 0-150 mg/dl Cholesterol Level 188 0-200 mg/dl HDL Cholesterol 69 mg/dl Cholesterol/HDL Ratio 2.7 LDL Cholesterol, Calculated 97 mg/dl Medical Emergencies . Who to Call and When: Medical Emergencies: If at any time you feel your situation is an emergency, please call 911 immediately. . Non-Emergent Contact Non-Emergency issues call your: Primary Care Provider, Associate Professor Of Education Call Non-Emergent contact if: you have a fever, temperature is above 101, your pain is not controlled, your pain is worsening, your pain is unusual for you, your pain is concerning you, you have any medication questions . . "Provider Documentation" section prepared by Susan Bob. .
--- NOTE | 2018-03-07 10:55 | Discharge Summary ---
Discharge Summary Date of Service March 07, 2018. Discharge Summary Admission Date: March 06, 2018 at 16:48 Discharge Date: March 07, 2018 Discharge Disposition: Home Principal Diagnosis: Sigmoid colon mass Problems/Secondary Diagnoses: (1) Hyperlipemia Status: Chronic (2) Hypothyroidism Nos Status: Chronic Procedures: Colonoscopy with sigmoid biopsy CT chest CT abdomen/pelvis Consultations: Gastroenterology General surgery Medication Reconciliation Continued Medications: Atorvastatin (Lipitor) 40 Mg Tab 40 MG PO DAILY Calcium Carbonate-Vitamin D (Calcium 600 + D) Unknown Strength Tab 2 TAB PO DAILY Levothyroxine Sodium (Levothyroxine Sodium) 75 Mcg Tab 75 MCG PO DAILY Discontinued Medications: Aspirin (Aspirin Ec) 81 Mg Tab 81 MG PO DAILY [place]-3 Fatty Acids ([place] 3) 1 Cap Cap 2 CAP PO DAILY Discharge Exam Patient feeling well, no abdominal pain at this time, no nausea or vomiting, tolerating a diet. Review of Systems: Constitutional: No problem reported Eyes: No problem reported ENT: No problem reported Respiratory: No shortness of breath Cardiovascular: No chest pain Abdomen: No pain, No nausea, No vomiting, No diarrhea, No constipation, No GI bleeding Musculoskeletal: + problem reported (Having some lower back pain at this time that has been chronic) Genitourinary - Female: No problem reported Neurologic: No problem reported Psychiatric: No problem reported Endocrine: No problem reported Hematologic / Lymphatic: No problem reported Integumentary: No problem reported Physical Exam: General Appearance: WD/WN, no apparent distress Eyes: normal inspection, PERRL, EOMI, sclerae normal ENT: hearing grossly normal, pharynx normal Neck: supple, no adenopathy, thyroid normal, trachea midline Respiratory/Chest: lungs clear, normal breath sounds, no respiratory distress, no accessory muscle use Cardiovascular: regular rate, rhythm, no edema, no gallop, no JVD, no murmur , normal peripheral pulses Abdomen / GI: normal bowel sounds, soft, no organomegaly, + tenderness ( Mild in the left lower quadrant without guarding or rebound tenderness) Extremities: normal inspection, no calf tenderness, normal capillary refill , no pedal edema, normal range of motion Neurologic/Psychiatric: no motor/sensory deficits, alert, normal mood/affect , oriented x 3 Skin: normal color, warm/dry, no rash Lymphatic: no adenopathy Hospital Course Patient is a 78-year-old female with history of dyslipidemia and hypothyroidism , who presented with progressively worsening symptoms over the last year of gas pains and a change in her bowel habits. She was seen recently by her PCP and referred for urgent colonoscopy which revealed a nearly obstructing sigmoid colon mass. Biopsies were taken the patient was admitted for further expedited evaluation. She was nonobstructed on CT scan and no other evidence of metastatic disease except for some pericolonic lymphadenopathy was noted. The patient and her family preferred to have a colorectal surgeon as posterior general surgeon perform her sigmoid resection. I discussed the case with colorectal surgeon on-call at [facility] in [place]. She said that as the patient is nonobstructed she did not need urgent surgery. The patient was arranged to see the colorectal surgeon as an outpatient the day after discharge and a semielective surgery will be scheduled for early next week. She will remain off of her aspirin and fish oil in the meantime. She is tolerating a low fiber diet at the time of discharge to home. Total Time Spent: Greater than 30 minutes This includes examination of the patient, discharge planning, medication reconciliation, and communication with other providers. Discharge Instructions Please refer to the electronic Patient Visit Report (Discharge Instructions) for additional information. Follow-Up With PCP within 1-2 weeks With colorectal surgery in 1 day. Additional Copies To Tyron Harrington D.O.; Isiah Frey M.D.
[2018-03-07 11:55] VITALS: BP 141/72; PULSE 61; TEMP 36.9; O2SAT 95
--- NOTE | 2018-03-07 15:47 | GASTROENTEROLOGY PROGRESS NOTE ---
DATE: 03/07/2018 GASTROENTEROLOGY PROGRESS NOTE PATIENT'S AGE: 78 SEX: Female. RACE: . I had the pleasure of seeing Yue Weiss at her bedside today. She was accompanied by her , her daughter, her son, and her [id number]. I also spoke with 2 of her other children, a son and a daughter by phone. I informed them of the results of her CT scan of her chest, abdomen, and pelvis that was performed earlier this morning and showed findings that were consistent with mucosal hyperenhancement and bowel wall thickening in the distal sigmoid colon and a few mildly enlarged pericolonic lymph nodes. The CT scan of the chest was unremarkable. I also relayed to them the results of her CEA level, which was slightly elevated at 3.7. I informed them that it is my belief that the colon mass is most likely consistent with colon cancer, though I did tell them that there is a small chance that it may be an inflammatory mass from diverticulitis with phlegmon formation, though I did not feel that this was likely. The family stated that they would like a colorectal surgeon to perform her upcoming surgery and specifically asked for a [facility] physician. I informed them that I have sent many patients to [facility] and has had good outcomes and they were agreeable with this recommendation. I also spoke with Dr. [facility]ale by telephone and relayed the details of the mass, which was found approximately 20 cm from the anal verge and was not able to be passed with either an adult colonoscope or an adult endoscope. I did tattoo the distal margin of this and also discussed with Dr. Velez pathology, which he read as showing biopsies consistent with tubular adenoma with high-grade dysplasia, though no cancer was seen specifically. I believe that it is most likely secondary to inadequate sampling. The patient and her family understood the plan, which will be to have Dr. Gale see the patient either in direct hospital transfer or as an outpatient based on Dr. Gale's recommendations and undergo surgical resection at a later date. I answered all questions that the patient's family asked and I am happy to provide any further details as needed. Once again, thank you for allowing me to participate in the care of this patient. If you have any further questions, please do not hesitate in contacting me.
--- NOTE | 2018-03-08 14:29 | EDITING REQUIRED CODING QUERY ---
PATHOLOGY To promote full compliance with coding requirements relating to patient care, physician participation is requested in all cases of crane crew supervisor uncertainty. Please assist us with the question(s) below: Please review the Pathology report and please document any relevant diagnosis(es) below: Diagnosis(es): TUBULAR ADENOMA WITH HIGH-GRADE DYSPLASIA. Thank you Kimberly Stevenson
== END 2018-03-07 13:15 | disposition home or self-care (01) | DRG 376 ==
LOC: C.GI 14:26 → EDBEDREQ 16:27 → ENRESERV 16:48 → C.MSW 16:48
PROVIDERS: ADMIT Internal Medicine; ATTEND Family Medicine
PROC: 0DBN8ZX Excision of Sigmoid Colon, Via Natural or Artificial Opening Endoscopic, Diagnostic (ICD-10-PCS; principal; 2018-03-06 15:20)
DX: C18.9 Malignant neoplasm of colon, unspecified (principal); R19.09 Other intra-abdominal and pelvic swelling, mass and lump; Z80.0 Family history of malignant neoplasm of digestive organs; E03.9 Hypothyroidism, unspecified; Z79.82 Long term (current) use of aspirin; E78.5 Hyperlipidemia, unspecified

== ENCOUNTER 2023-05-04 06:49 | Observation (INO) ==
--- NOTE | 2023-04-04 15:47 | PAT Medication Instructions ---
Medication Instructions Date of Service April 04, 2023 Home Medications Medication Instructions Recorded levothyroxine 75 mcg tablet 75 mcg PO QAM #30 tabs 07/09/20 omega 3 350 mg-dha 235 mg-epa 90 mg-fish oil 597 mg capsule,delay rel ([place]-3) 1 cap PO BID levothyroxine 75 mcg tablet 75 mcg PO QAM rosuvastatin 20 mg tablet 20 mg PO QAM oxycodone-acetaminophen 5 mg-325 mg tablet 1 tab PO DAILY PRN STOP taking 2 weeks before surgery (or as soon as possible if surgery is within 2 weeks) omega 3 350 mg-dha 235 mg-epa 90 mg-fish oil 597 mg capsule,delay rel ([place]arrison-3) 1 cap PO BID Take morning of surgery With a small sip of water, OTHERWISE NOTHING TO EAT OR DRINK AFTER MIDNIGHT: levothyroxine 75 mcg tablet 75 mcg PO QAM rosuvastatin 20 mg tablet 20 mg PO QAM oxycodone-acetaminophen 5 mg-325 mg tablet 1 tab PO DAILY PRN(if needed) Other Notes If you have any questions please call us at [phone] or [phone] or [phone] or [phone]
--- NOTE | 2023-04-07 12:12 | Anesthesiology Consultation ---
Date of Service April 07, 2023 Assessment & Plan (1) Encounter for pre-operative examination: - COVID screening: Per assessment on 04/07: No known COVID-19 positive contacts or current COVID-19 related symptoms. Travel screen negative. Patient vaccinated. At surgeon discretion if preop Covid testing being done. - Outpatient joint assessment: Pt currently scheduled for inpatient pathway. If surgeon requests review for outpatient joint pathway, patient is not recommended candidate for outpatient joint program from anesthesia standpoint. - Cardiology visit (01/13/23): "Patient was previously seen in December 2022 for symptoms of chest discomfort and underwent an echocardiogram which showed an LVEF of 60%, grade 1 diastolic dysfunction, no significant valvular dysfunction. Given her symptoms of chest discomfort I recommended coronary angiogram which she underwent via right radial approach on 12/30/2022, was found to have mildly elevated LVEDP of 15 mmhg, nonobstructive coronary artery disease all th roughout.. She appears to be doing well from a cardiac standpoint" - Cardiology note (04/06/23): "low to moderate risk" - *Severe spinal stenosis + +scoliosis* Chart Review Chart Review: Acceptable Risk for Surgery and Patient seen in Pre Admission Testing Teaching & Discussion Pre-Anesthesia Teaching/Discussion Notes: Instructed NPO after midnight before surgery,except medications with 15 cc of water. Medication instructions provided according to the PAT guidelines. History Surgery Operation Date: 05/04/23 10:40 Proposed Procedures p Right Total Knee Arthroplasty - Duke Bliss MD Height/Weight Height: 5 ft 2 in Weight: 67.6 kg Allergies Allergy/AdvReac Type Severity Reaction Status Date / Time No Known Allergies Allergy Verified 04/04/23 12:18 Medications Home Medications Medication Instructions Recorded Confirmed Last Taken omega 3 350 mg-dha 235 mg-epa 90 1 cap PO BID 03/12/19 04/04/23 09/09/20 mg-fish oil 597 mg capsule,delay rel ([place]-3) levothyroxine 75 mcg tablet 75 mcg PO QAM #30 tabs 07/09/20 04/04/23 09/10/20 rosuvastatin 20 mg tablet 20 mg PO QAM 09/03/20 04/04/23 09/09/20 oxycodone-acetaminophen 5 mg-325 1 tab PO DAILY PRN Pain 04/04/23 04/04/23 Unknown mg tablet Past Medical History Medical History (Updated 04/07/23 @ 13:55 by Risa More) CAD (coronary artery disease) Nonobstructive CAD per 12/2022 cath Cancer of sigmoid colon 2017 > treated surgically (bowel resection) Hyperlipidemia Hypothyroidism Osteoarthritis Scoliosis Spinal stenosis Exercise / Class Metabolic Activity III < 4 Walking/Shop/Light housework (uses walker) Past Family History Family History Brother Family history of diabetes mellitus Other No family history of adverse response to anesthesia Past Surgical History Surgical History History of appendectomy History of bilateral tubal ligation History of bladder surgery bladder tuck History of bowel resection 02/2018 History of cardiac cath 2022 > no stents History of cholecystectomy History of colonoscopy History of dilatation and curettage History of open reduction and internal fixation (ORIF) procedure left wrist (+ hardware) History of phacoemulsification of cataract of both eyes with intraocular lens implantation History of ptosis repair R/L History of tonsillectomy History of tooth extraction S/P epidural steroid injection Past Anesthesia History No Hx of Anesthesia Complications and No Family Hx of Anesthesia Complications History of PONV No Hx of PONV and No Hx of Motion Sickness Social History Smoking Status: Never smoker Do You Dip or Chew Tobacco: No Hx Alcohol Use: Yes Alcohol type: wine alcohol intake frequency: holidays/special occasions only Hx Substance Use: No substance use type: does not use Review of Systems Patient denies chest pain, shortness of breath, fever, chills, cough, wheezing, palpitations. Physical Exam Vital Signs VITALS BP 128/79 P 81 TEMP 98.0 SP02 96%RA RESP 16 PHYSICAL Full cervical extension range of motion. Full TMJ range of motion. TMD 3.5 finger breaths Mallampati Score 3 Dentition: upper front crown + bridge, upper partial, side/molars missing Lungs: clear throughout to auscultation Cardiac: regular rate and rhythm, no murmurs noted Spine: normal Carotid arteries: negative bruit Extremities: no LE edema Lab Results Anesthesia Preop Results Results Anesthesia Widget: WBC 4.48 K/ul (4.8-10.8) L 04/07/23 Hgb 13.3 g/dl (12.0-16.0) 04/07/23 Hct 40.0 % (37.0-47.0) 04/07/23 Plt 211 K/uL (130-400) 04/07/23 Na 138 mmol/L (136-145) 04/07/23 K 4.4 mmol/L (3.5-5.1) 04/07/23 Cl 107 mmol/L (98-107) 04/07/23 CO2 26 mmol/L (21-32) 04/07/23 BUN 20 mg/dl (6-23) 04/07/23 Creat 0.89 mg/dl (0.6-1.2) 04/07/23 Glucose Level 89 mg/dl (70-99(Fasting)) 04/07/23 PT 10.9 Seconds (9.0-12.0) 04/07/23 PTT 27.1 Seconds (21.0-31.0) 04/07/23 INR 1.0 (0.9-1.1) 04/07/23 Urine Color Yellow 04/07/23 Urine Appearance Clear (Clear) 04/07/23 Urine pH 6.0 (4.5-7.5) 04/07/23 Urine Specific [place] 1.021 (1.000-1.030) 04/07/23 Urine Protein Negative (Negative) 04/07/23 Urine Glucose (UA) Negative (Negative) 04/07/23 Urine Ketones Negative (Negative) 04/07/23 Urine Blood Negative (Negative) 04/07/23 Urine Nitrite Negative (Negative) 04/07/23 Urine Bilirubin Negative (Negative) 04/07/23 Urine Urobilinogen Negative (Negative) 04/07/23 Urine Leukocyte Esterase Negative (Negative) 04/07/23 Blood Type B Positive 04/07/23 Antibody Screen NEGATIVE 04/07/23 Testing Electrocardiogram Date: 12/09/22 SR at 73bpm. Possible inferior infarct. Moderate right precordial repolarization disturbance, consider feminine pattern. Negative T in V2 with small negative T in V3. + artifact. Echocardiogram Date: 12/15/22 EF 60%. Grade I DD. Mild MR. Stress Test Date: 09/19/19 Type: nuclear Lexiscan nuclear cardiac stress test negative for ischemia. Post-rest perfusion is normal. Gated SPECT images reveal normal myocardial thickening and wall motion. LVEF is calculated at > 75%. Stress ECG with 1 to [address] depression in the inferior leads, 0.[address] depression in the anterior leads. " In setting of normal perfusion, and normal gated SPECT study, stressed induced ECG changes may represent falsepositive finding" per report. Cardiac Catheterization Date: 12/30/22 Nonobstructive coronary artery disease. Mildly elevated LVEDP. Medical management recommended. Other Testing Carotid duplex Date: 06/25/16 <50% B/L ICA stenosis. Antegrade flow in both vertebral arteries. Chest/Abd/Pelvis CT Date: 03/17/23 Postoperative changes related to partial colonic resection with anastomosis. Moderate amount of stool throughout the colon. No findings to indicate local recurrence. Few small scattered noncalcified pulmonary nodules which are nonspecific and indeterminate. Recommend attention on follow-up exams. Large airways patent. No pleural effusion or pneumothorax. COVID-19 Risk Screen Screening Information COVID-19 Screen Date: 04/07/23 Exposure 21 Days Family/Household +COVID Last 21 Days: No Exposure 10 Days Any COVID Exposure Last 10 Days: No Symptoms Last 10 Days Experienced COVID Sx Last 10 Days: No + COVID 0-90 Days COVID + in Last 0-90 Days: No
[~2023-05-04 06:49] MED LIST changes: -ASPI81TA28 PO; +BUPIVACAINE 0.25% PF 30 ML VIAL ONE; +BUPIVACAINE 0.5 % 5 MG/1 ML PF 10ML VIAL ONE; -CALC-20 PO; -LEVO75TA5 PO; -LPT40 PO; +LR 500ML BOLUS, THEN 15ML/HR IV SCH; +LR 60ML/HR IV SCH; -OMEG12006 PO; +ROPIVACAINE 0.5% HCL/PF 150 MG, BUPIVACAINE 0.75% MPF 20 ML, EPINEPHrine 0.15 MG, Ketor... INFIL SCH; +TRANEXAMIC ACID 1,000 MG **IV Pre-op IV SCH; +ceFAZolin 2000MG 2,000 MG/15 ML SYR IV SCH
[2023-05-04] MEDS ORDERED: MIDAZOLAM HCL 1 MG/ML 2ML VIAL ONE ×2 (07:27→08:03)
[2023-05-04] MEDS ORDERED: ePHEDrine sulfate 50 MG/ML AMP IV PRN (07:45)
[2023-05-04] MEDS ORDERED: ONDANSETRON INJ 2 MG/ML 2 ML VIAL IV PRN ×2 (07:45→11:50)
[2023-05-04] MEDS ORDERED: ATROPINE SULFATE 0.1 MG/ML 10ML SYR IV PRN (07:45)
[2023-05-04] MEDS ORDERED: PROPOFOL IV EMULSION 10 MG/ML 20 ML VIAL IV ONE ×2 (08:03→11:40)
--- NOTE | 2023-05-04 08:23 | History & Physical Bridge Note ---
Date of Service May 04, 2023 History & Physical Bridge Note I have examined the patient, reviewed the History & Physical and in the interval since the performance of the History & Physical I have noted the following changes of clinical significance: no changes noted
[2023-05-04] MEDS ORDERED: fentaNYL citrate PF 100 MCG/2 ML VIAL ONE ×2 (08:29→09:21)
[2023-05-04] MEDS ORDERED: ORTHO JOINT ANESTHETIC ONE (08:34)
[2023-05-04] MEDS ORDERED: ONDANSETRON INJ 2 MG/ML 2 ML VIAL ONE (09:10)
[2023-05-04] MEDS ORDERED: DEXAMETHASONE SOD INJ 4 MG/ML VIAL ONE (09:10)
[2023-05-04] MEDS ORDERED: ePHEDrine sulfate 50 MG/ML SYR ONE (10:01)
--- NOTE | 2023-05-04 10:23 | Post Operative Brief Note ---
Immediate Post Op Note v1 Date of Surgery May 04, 2023 Pre & Post Diagnosis Operation Date: 05/04/23 08:40 Pre-Op Diagnosis: Right Knee Degenerative Joint Disease Post-Op Diagnosis: Right Knee Degenerative Joint Disease I identified the patient and participated in the time-out.: Yes Procedure Operation Date: 05/04/23 08:40 Actual Procedures p Right Total Knee Arthroplasty(Right) - Duke Bliss MD Surgeon Duke Bliss MD Farm Planner Sulema/Christy Estimated Blood Loss 50 Findings Consistent with Post-Op Diagnosis Severe medial DJD moderate patellofemoral and lateral compartment Fluids See anesthesia report Complications None
--- NOTE | 2023-05-04 10:26 | Operative Report ---
Post Operative Report Pre & Post Diagnosis Operation Date: 05/04/23 08:40 Pre-Op Diagnosis: Right Knee Degenerative Joint Disease Post-Op Diagnosis: Right Knee Degenerative Joint Disease I identified the patient and participated in the time-out.: Yes Procedure Operation Date: 05/04/23 08:40 Actual Procedures p Right Total Knee Arthroplasty(Right) - Duke Bliss MD Surgeon Duke Bliss MD Banquet Kitchen Supervisor Sulema/Christy Estimated Blood Loss 50 Findings Consistent with Post-Op Diagnosis Severe DJD medial compartment moderate lateral compartment and patellofemoral joint Fluids See anesthesia report Specimens Bone pathology Drains None Complications None Indications Severe pain osteoarthritis right knee Description of Procedure Patient identified site verify consent provide antibiotics from his given the right lower extremities prepped and draped in the usual routine fashion. Tourniquet was inflated to 275 mm stefania for total of 50 minutes after exsanguination limited by bursa appendage. Exporter utilized parapatellar neurotomy performed. Synovectomy completed osteophytes resected distal femur entered cruciates resected. Tibia subluxated menisci resected. Distal femur resected 14 mm proximal tibia 4 mm extension gap was excellent. The tibia was sized to a 3 and the femur was between a 4-3 was measured for cut 3 no significant notching. Flexion gap was excellent. The box cut was then made to size 3 fit well. Tibia was then broached and reamed to a size 3 appropriate 15 mm spacer placement that everything was excellent good midrange stability with good full flexion good full extension. Patella tracked well. The patella was excised leaving 14 of its own millimeters thickness. Seating holes made in the 38 button fit well and tracked well. All trial implants were then removed wound irrigated with Betadine and Pulsavac and then cemented into position femur tibia and patella in that order a 12 minutes at the tourniquet was deflated minor bleeding points controlled electrocautery at 14 minutes knee was then flexed the trial spacer removed irrigated no cement removal required to bone wax placed around some of the resection cement was bleeding permanent liner seated knee then reduced and closed with #2 Vicryl 2-0 Vicryl standstill clips. Summary of implants size 3 right femur posterior cruciate substituting size 3 mobile-bearing tray size 3x15 posterior cruciate substituting insert size 38 patella 2 bags of [place] G cement this was all J&J rotating platform. See patient medically. Female with intractable bilateral knee pain right worse than left wants to proceed with total knee replacement. Consent obtained the risk and benefits and consequences all identified. She states she understands. She received preoperative antibiotic and TXA. Consent was verified as well as appropriate timeout performed. I attest to the content of the Intraoperative Record and any orders documented therein. Any exceptions are noted below.
--- NOTE | 2023-05-04 10:32 | Operative Report ---
Post Operative Report Pre & Post Diagnosis Operation Date: 05/04/23 08:40 Pre-Op Diagnosis: Right Knee Degenerative Joint Disease Post-Op Diagnosis: Right Knee Degenerative Joint Disease I identified the patient and participated in the time-out.: Yes Procedure Operation Date: 05/04/23 08:40 Actual Procedures p Right Total Knee Arthroplasty(Right) - Duke Bliss MD Surgeon MANISHA Bliss MD Quiller Machine Fixer Sulema/Christy CASTREJON Estimated Blood Loss 50 Findings Consistent with Post-Op Diagnosis see operative report Specimens see operative report Drains none Complications none Disposition Accompanied Patient To Recovery: Yes Indications This 83 year old female presents to the office for complaints of persisting right knee pain. She had tried conservative care measures without improvement. She elected to proceed with surgical intervention after being educated about potential risks and outcomes. Preoperative imaging was obtained. Description of Procedure The patient was taken to the operating room where she was given general anesthesia. She was prepped and draped in the usual sterile fashion. Please see Dr. Bliss's operative report for specifics of the procedure. I was present for the entire case from initial patient positioning through final wound closure. Assistance was provided in tissue retraction, hemostasis, trial implant placement, final implant placement, and final wound closure. The patient was taken to the recovery room in satisfactory condition. I attest to the content of the Intraoperative Record and any orders documented therein. Any exceptions are noted below.
--- NOTE | 2023-05-04 10:35 | Orthopedic Progress Note ---
Date of Service May 04, 2023 Assessment & Plan (1) Status post right knee replacement: Plan: Continue care pathway. Will have social work case manager and case management visit as well as PT to place into all rehab facility tomorrow. Patient has extensive low back history with chronic pain and secondary neuropathy and is at high risk for fall and would be an excellent candidate for inpatient rehab. This would minimize her risk. Subjective Status post right cemented total knee replacement. Resting comfortably in bed. Denies any chest pain shortness of breath fever chills nausea vomiting or headache. Physical Exam Physical Exam: Wound dressing clean dry and intact. Neurovascular check grossly normal. X- rays pending. Results & Data Vital Signs (Past 12 Hours) Vital Signs Temp Pulse Resp BP Pulse Ox O2 Del Method 05/04/23 07:44 36.6 C 62 18 155/76 H 98 Room Air
--- NOTE | 2023-05-04 10:38 | Discharge Summary ---
Date of Service May 04, 2023 Admission HPI Per Admitting Provider Admitted for right elective total knee replacement. Patient has extensive history of bilateral knee pain right worse than left as well as extensive back history requiring protected mobilization and fall risk. Principal Diagnosis Status post right total knee replacement. 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 Discharge Exam Wound dressing clean dry and intact. Neurovascular check grossly normal. X- rays pending. Discharge Data Allergies Allergy/AdvReac Type Severity Reaction Status Date / Time No Known Allergies Allergy Verified 05/04/23 07:41 Procedures Performed Operation Date: 05/04/23 08:40 Actual Procedures p Right Total Knee Arthroplasty(Right) - Duke Bliss MD Ordered Studies 05/04/23 05:00 US - OR guided needle placemen Routine Hospital Course (1) Status post right knee replacement: Continue care pathway. Will have social service technician and case management visit as well as PT to place into all rehab facility tomorrow. Patient has extensive low back history with chronic pain and secondary neuropathy and is at high risk for fall and would be an excellent candidate for inpatient rehab. This would minimize her risk. Total Time Total Time Spent Total Time Spent (In Minutes): 15 Discharge Plan Discharge Items Patient Disposition: Transfer Inpatient Rehab Fac Reason For Visit: Right Knee Degenerative Joint Disease Activity: Per Instructions section Bathing: Keep incision dry Sexual Activity: Wait until after follow-up appointment Excercise/Sports: Wait until after follow-up appointment Driving/Machine Use Comment: no driving x 6 weeks Weightbearing: Full weightbearing Non-emergency contact: Surgeon Call non-emergency contact if: your temperature is above 101.5, your wound has increased redness, your wound has increased drainage and your wound pain has increased Follow-Up/Referrals: Ileana Armstrong, [Primary Care Provider] - Diet: Resume previous diet Addtl Attending Provider Instructions: DIET: * Resume previous diet. MEDICATIONS: * Please take your prescriptions as instructed at your pre-op appointment and/or see medication discharge instructions listed above. * If concerns develop, call your physician's office at . SPECIAL CARE INSTRUCTIONS: * Ice/Elevate as instructed. * Keep dressing clean, dry, intact. * Your surgical extremity may be discolored due to prepping agents used on the skin. A bluish-green tint is a normal variant and should not cause alarm. Call your doctor at [phone] if: * Temperature above 101 degrees * Pain not relieved by pain medicine ordered * There is increased drainage or redness from any incision * You have any unanswered questions, problems or concerns. FOLLOW UP VISIT: * If not already scheduled, please call the office at to schedule a follow-up appointment. Pending Studies at Discharge: Yes Studies:: bone pathology Prescriptions: No Action levothyroxine 75 mcg tablet 75 mcg PO QAM Qty: 30 0RF [place]-3 350 mg-235 mg- 90 mg-597 mg Capsule,Delayed Release(Dr/Ec) 1 cap PO BID rosuvastatin 20 mg Tablet 20 mg PO QAM oxycodone-acetaminophen 5-325 mg Tablet 1 tab PO DAILY PRN (Reason: Pain) Admission Data Attending Provider: Duke Bliss Primary Care Provider: Ileana Armstrong
[2023-05-04] MEDS: fentaNYL citrate PF 100 MCG/2 ML VIAL IV PRN ×4 (10:39→11:09)
--- NOTE | 2023-05-04 10:52 | XRay Report ---
XR knee RT 1 or 2V routine CLINICAL HISTORY: Status post right knee arthroplasty. COMPARISON: Right knee radiographs April 07, 2023. FINDINGS: Alignment of the total right knee arthroplasty is anatomic. There is no periprosthetic fra cture. No unexpected radiopaque foreign bodies are present. There are skin deandre. IMPRESSION: Expected findings following total right knee arthroplasty. ACT 112: Negative or not required by law. Electronically signed by: Luis Alvarez M.D. 05/04/2023 10:51 AM
--- NOTE | 2023-05-04 11:01 | Anesthesiology Progress Note ---
Date of Service May 04, 2023 Anesthesia Post Procedure Vital Signs Vital Signs: Temp Pulse Resp BP Pulse Ox O2 Del Method 05/04/23 07:44 36.6 C 62 18 155/76 H 98 Room Air Pain Intensity Right Knee: Pain Intensity: 5 Transfer of Care Handoff Completed per policy Notes Mental Status: alert / awake / arousable and participated in evaluation Patient Amnestic to Procedure: Yes Nausea / Vomiting: adequately controlled Pain: adequately controlled and improving with treatment Airway Patency, RR, SpO2: stable & adequate BP & HR: stable & adequate Hydration State: stable & adequate Anesthetic Complications: no major complications apparent and Pt Satisfied with anesthetic care Notes: ecg completed in pacu and it showed no sig change prior old ecg
[2023-05-04] MEDS ORDERED: NALOXONE HCL 0.4 MG/1 ML VIAL/CARP IV PRN (11:50)
[2023-05-04] MEDS ORDERED: METOCLOPRAMIDE HCL INJ 5 MG/ML 2 ML VIAL IV PRN (11:50)
[2023-05-04] MEDS ORDERED: HYDROmorphone INJ 0.5 MG/0.5 ML SYR IV PRN (11:50)
[2023-05-04] MEDS ORDERED: diphenhydrAMINE 50 MG/ML VIAL IV PRN (11:50)
[2023-05-04] MEDS ORDERED: SODIUM CHLORIDE 0.9% 1000ML 1,000 ML IV SCH (11:50)
[2023-05-04] MEDS ORDERED: traMADol HCL 50 MG TABLET PO PRN (11:50)
[2023-05-04] MEDS ORDERED: MAGNESIUM HYDROXIDE SUSP 30 ML UDC PO PRN (11:50)
[2023-05-04] MEDS ORDERED: bisacodyL 10 MG SUPP PR PRN (11:50)
[2023-05-04] MEDS ORDERED: ALUMINUM/MAGNESIUM SUSP 30 ML UDC PO PRN (11:50)
[2023-05-04] MEDS: KETOROLAC TROMETHAMINE 15 MG/ML VIAL IV SCH ×3 (12:18→23:36)
[2023-05-04] MEDS ORDERED: WARFARIN SOD 5 MG TAB PO ONE (12:51)
[2023-05-04] MEDS: ACETAMINOPHEN 500 MG TAB PO SCH ×2 (14:09→21:57)
[2023-05-04] MEDS: ORTHO WARFARIN NOMOGRAM SCH (14:10)
[2023-05-04] MEDS: ceFAZolin 2000MG 2,000 MG/15 ML SYR IV SCH ×2 (16:26→23:37)
[2023-05-04] MEDS: FERROUS GLUCONATE 324 MG TAB PO SCH (16:27)
[2023-05-04] MEDS: ASCORBIC ACID 500 MG TAB PO SCH (16:27)
[2023-05-04] MEDS ORDERED: TRANEXAMIC ACID / 0.7% NACL 1,000 MG/100 ML BAG IV SCH (17:00)
[2023-05-04] MEDS ORDERED: Nursing to Pharmacy Communication SCH (17:15)
[2023-05-04] MEDS: DOCUSATE SODIUM 100 MG CAP PO SCH (19:52)
[2023-05-04] MEDS: SENNA 8.6 MG TAB PO SCH (19:52)
[2023-05-04] MEDS: oxyCODONE HCL IR 5 MG TAB (IMMEDIATE RELEASE) PO PRN (21:57)
[2023-05-05] MEDS: KETOROLAC TROMETHAMINE 15 MG/ML VIAL IV SCH (06:09)
[2023-05-05] MEDS: ACETAMINOPHEN 500 MG TAB PO SCH ×3 (06:09→22:15)
[2023-05-05] MEDS: LEVOTHYROXINE SODIUM 75 MCG TABLET PO SCH (06:09)
--- NOTE | 2023-05-05 06:12 | Orthopedic Progress Note ---
Date of Service May 05, 2023 Assessment & Plan (1) Status post right knee replacement: Plan: Continue care pathway. Will have social security specialist and case management visit as well as PT to place into all rehab facility tomorrow. Patient has extensive low back history with chronic pain and secondary neuropathy and is at high risk for fall and would be an excellent candidate for inpatient rehab. This would minimize her risk. Plan Did well overnight this morning her wound dressings clean dry and intact can do straight leg raise easily flexes to 80 degrees. Calves nontender. Transfer doing well rehab facility hopefully today. With her back history she is not a good candidate to go home with her age and comorbidities. Hopefully insurance will approve this. Admission and Anticipated Discharge Date Admission Date: May 04, 2023 Subjective Did well overnight and had no major issues. Denies nausea vomiting chest pain shortness of breath fever chills. Status post right cemented total knee replacement. Resting comfortably in bed. Denies any chest pain shortness of breath fever chills nausea vomiting or headache. Physical Exam Physical Exam: Wound dressing clean dry and intact. Neurovascular check grossly normal. X- rays pending. Results & Data Vital Signs (Past 12 Hours) Vital Signs Temp Pulse Resp BP BP Pulse Ox O2 Del Method 05/05/23 04:29 62 18 105/62 94 Room Air 05/05/23 03:00 63 18 98/50 L 05/05/23 02:55 36.6 C 66 18 88/46 L 94 Room Air 05/04/23 23:33 36.5 C 64 16 111/65 95 Room Air 05/04/23 19:09 36.3 C L 60 18 102/55 L 94 Room Air
[2023-05-05 06:18] LABS: Hematocrit (blood only) 31.4 % (37.0-47.0); Hemoglobin 10.7 g/dl (12.0-16.0); Mean Corpuscular Hemoglobin 30.7 pg (25.0-34.0); Mean Corpuscular Hgb Conc 34.1 g/dL (32.0-36.0); Mean Platelet Volume 8.7 fL (9.4-12.4); Platelet Count 155 K/uL (130-400); RDW Coefficient of Variation 13.4 % (11.5-14.5); RDW Standard Deviation 44.1 fL (36.4-46.3); Red Blood Count 3.49 M/uL (4.20-5.40); White Blood Count 8.23 K/ul (4.8-10.8)
[2023-05-05 06:28] LABS: BUN Creatinine Ratio 20.2 (10-20); Calcium 8.2 mg/dl (8.6-10.3); Creatinine Clr Calc Pharmacy 46.5 ml/min; Est GFR (Non-African American) 63.8 ml/min; Potassium 4.4 mmol/L (3.5-5.1)
[2023-05-05 06:40] LABS: Prothrombin Time 10.8 Seconds (9.0-12.0)
[2023-05-05] MEDS: ASCORBIC ACID 500 MG TAB PO SCH ×2 (07:44→17:32)
[2023-05-05] MEDS: DOCUSATE SODIUM 100 MG CAP PO SCH ×2 (07:44→20:00)
[2023-05-05] MEDS: ROSUVASTATIN CALCIUM 20 MG TAB PO SCH (07:44)
[2023-05-05] MEDS: MULTIVITAMIN TAB PO SCH (07:44)
[2023-05-05] MEDS: FERROUS GLUCONATE 324 MG TAB PO SCH ×2 (07:44→17:32)
--- NOTE | 2023-05-05 07:54 | Orthopedic Progress Note ---
Date of Service May 05, 2023 Assessment & Plan (1) Status post right knee replacement: Plan: The patient was educated regarding today's findings. Conservative care measures were discussed. Her surgical dressing was changed by me. MADDY hose were reapplied. Continue using her knee immobilizer when out of bed for today and tomorrow. It may be discontinued entirely on Tuesday morning. Ice and elevate the knee frequently to reduce pain and swelling. We are awaiting confirmation from her insurance plan regarding transfer to [facility]. The patient has no current backup plan if this is denied. She does not wish to go to a SNF and cannot go home due to living alone and having her bedroom on the second floor. Pain is currently controlled. Start PT/OT today. Follow-up in the office in 2 weeks as scheduled for staple removal. Coumadin today per nomogram. Discharged on 4 mg daily and have the INR rechecked on Tuesday. Admission and Anticipated Discharge Date Admission Date: May 04, 2023 Subjective This 83-year-old female is seen today in her room. She is 1 day status post right total knee arthroplasty. She states she is doing well. She has no pain. She has no complaints. She is ready to go to [facility]. She states she does not wish to go anywhere else. She denies any chest pain, shortness of breath, nausea, vomiting, or abdominal pain. No significant knee pain. She has been out of bed and has been ambulatory with her walker. She is waiting for breakfast. Review of Systems Review of Systems: Unchanged from yesterday. Physical Exam Physical Exam: General: Well-developed, elderly female, in no acute distress. Sitting in bed. Alert and oriented. Skin: Warm and dry with good turgor. No rashes. Postsurgical dressings are in place on the right knee. Upon removal, she has a closed surgical incision. No active bleeding. Expected postoperative edema. No ecchymosis or erythema. There is scant dried blood on her inner dressings. No active bleeding at this time. Musculoskeletal: The patient has intact motor function of her hip, knee, and ankle. She has full extension. Flexion to greater than 60 degrees. She is able to perform a straight leg raise. Neurologic: Gross sensation is intact across the right leg by soft touch. Peripheral pulses are 2+. Results & Data Vital Signs (Past 12 Hours) Vital Signs Temp Pulse Resp BP Pulse Ox O2 Del Method 07/06/23 07:31 36.4 C L 59 L 14 125/65 96 Room Air 05/05/23 04:29 62 18 105/62 94 Room Air 05/05/23 03:00 63 18 98/50 L 05/05/23 02:55 36.6 C 66 18 88/46 L 94 Room Air 05/04/23 23:33 36.5 C 64 16 111/65 95 Room Air Laboratory Results CBC obtained today shows a white count of 8.2. H&H of 10.7 and 31.4. Normal platelets. INR of 1.0. PRP is unremarkable.
[2023-05-05] MEDS ORDERED: dexAMETHasone 10 MG in SYRINGE 0 ML IV SCH (08:00)
[2023-05-05] MEDS: ORTHO WARFARIN NOMOGRAM SCH (13:19)
[2023-05-05] MEDS ORDERED: WARFARIN SOD 5 MG TAB PO SCH (16:00)
[2023-05-05] MEDS: oxyCODONE HCL IR 5 MG TAB (IMMEDIATE RELEASE) PO PRN (19:56)
[2023-05-05] MEDS: SENNA 8.6 MG TAB PO SCH (20:00)
[2023-05-06] MEDS: oxyCODONE HCL IR 5 MG TAB (IMMEDIATE RELEASE) PO PRN ×5 (00:12→13:04)
[2023-05-06] MEDS: ACETAMINOPHEN 500 MG TAB PO SCH (05:50)
[2023-05-06] MEDS: LEVOTHYROXINE SODIUM 75 MCG TABLET PO SCH (05:50)
--- NOTE | 2023-05-06 06:19 | Orthopedic Progress Note ---
Date of Service May 06, 2023 Assessment & Plan (1) Status post right knee replacement: Plan: Assessment doing reasonably well. Is awaiting a final determination on insurance. Suspect that she will be discharged today regardless of the site. Follow-up in the office in 2 weeks for staple movable. Continue anticoagulation. The patient was educated regarding today's findings. Conservative care measures were discussed. Her surgical dressing was changed by me. MADDY hose were reapplied. Continue using her knee immobilizer when out of bed for today and tomorrow. It may be discontinued entirely on Tuesday morning. Ice and elevate the knee frequently to reduce pain and swelling. We are awaiting confirmation from her insurance plan [facility]. The patient has no current backup plan if this is denied. She does not wish to go to a SNF and cannot go home due to living alone and having her bedroom on the second floor. Pain is currently controlled. Start PT/OT today. Follow-up in the office in 2 weeks as scheduled for staple removal. Coumadin today per nomogram. Discharged on 4 mg daily and have the INR rechecked on Tuesday. Admission and Anticipated Discharge Date Admission Date: May 04, 2023 Orthopedic Progress Note Postop day #2 status post right knee replacement. Intraoperative blocks have worn off. She is pain. She responds to the oxy codon. Last about 3 hours. She is doing her exercises. She denies chest pain shortness of breath fever chills nausea vomiting or headache. Physical exam reveals no issues with dressing. She can do a straight leg raise. She does have more discomfort in that not as vigorous as it was yesterday but is intact. She can wiggle her toes neurovascular check femoral sciatic nerve is normal wound dressing clean dry and intact. Range of motion near 0 to near 80 degrees. Calves nontender.
[2023-05-06] MEDS: DOCUSATE SODIUM 100 MG CAP PO SCH (07:40)
[2023-05-06] MEDS: ASCORBIC ACID 500 MG TAB PO SCH (07:41)
[2023-05-06] MEDS: MULTIVITAMIN TAB PO SCH (07:41)
[2023-05-06] MEDS: FERROUS GLUCONATE 324 MG TAB PO SCH (07:41)
[2023-05-06] MEDS: ROSUVASTATIN CALCIUM 20 MG TAB PO SCH (07:41)
[2023-05-06] MEDS ORDERED: ONDANSETRON 4 MG OD TAB PO ONE (12:49)
--- NOTE | 2023-05-06 22:30 | Electrocardiogram Report ---
Test Reason : Blood Pressure : / mmHG Vent. Rate : 069 BPM Atrial Rate : 069 BPM P-R Int : 174 ms QRS Dur : 096 ms QT Int : 432 ms P-R-T Axes : 042 026 -79 degrees QTc Int : 462 ms Normal sinus rhythm Possible Inferior infarct , age undetermined T wave abnormality, consider anterior ischemia Abnormal ECG When compared with ECG of 07-AUG-2014 12:24, Borderline criteria for Inferior infarct are now Present Nonspecific T wave abnormality, worse in Inferior leads Nonspecific T wave abnormality, worse in Lateral leads Confirmed by Antonio Donaldson ([id number]) on 05/06/2023 10:30:31 PM Referred By: Duke Bliss Confirmed By:Antonio Donaldson
--- NOTE | 2023-05-10 12:48 | Discharge Summary ---
Date of Service May 10, 2023 Admission HPI Per Admitting Provider Admitted for right elective total knee replacement. Patient has extensive history of bilateral knee pain right worse than left as well as extensive back history requiring protected mobilization and fall risk. Principal Diagnosis Status post total knee replacement cemented Discharge Exam Wound dressing clean dry and intact. Neurovascular check grossly normal. X- rays pending. Discharge Data Allergies Allergy/AdvReac Type Severity Reaction Status Date / Time No Known Allergies Allergy Verified 05/04/23 07:41 Procedures Performed Operation Date: 05/04/23 08:40 Actual Procedures p Right Total Knee Arthroplasty(Right) - Duke Bliss MD Ordered Studies 05/04/23 05:00 US - OR guided needle placemen Routine Hospital Course (1) Status post right knee replacement: Assessment doing reasonably well. Is awaiting a final determination on insurance. Suspect that she will be discharged today regardless of the site. Follow-up in the office in 2 weeks for staple movable. Continue anticoagulation. The patient was educated regarding today's findings. Conservative care measures were discussed. Her surgical dressing was changed by me. MADDY hose were reapplied. Continue using her knee immobilizer when out of bed for today and tomorrow. It may be discontinued entirely on Tuesday morning. Ice and elevate the knee frequently to reduce pain and swelling. We are awaiting confirmation from her insurance plan regarding transfer to [facility]. The patient has no current backup plan if this is denied. She does not wish to go to a SNF and cannot go home due to living alone and having her bedroom on the second floor. Pain is currently controlled. Start PT/OT today. Follow-up in the office in 2 weeks as scheduled for staple removal. Coumadin today per nomogram. Discharged on 4 mg daily and have the INR rechecked on Tuesday. Total Time Total Time Spent Total Time Spent (In Minutes): 5 Discharge Plan Discharge Items Patient Disposition: Transfer [facility] Fac Reason For Visit: Right Knee Degenerative Joint Disease Discharge Diagnosis: Right knee s/p total knee replacement Condition on Discharge: Good Activity: Per Instructions section Lifting: Wait until after follow-up appointment Bathing: Keep incision dry Sexual Activity: Wait until after follow-up appointment Exercise/Sports: Wait until after follow-up appointment Driving/Machine Use: No driving for 4 weeks Weightbearing: Full weightbearing Non-emergency contact: Surgeon Call non-emergency contact if: you have any medication questions, your pain is not controlled, your temperature is above 101.5, your wound has increased redness, your wound has increased drainage and your wound pain has increased Follow-up/Referrals: Ileana Armstrong, [Primary Care Provider] - Diet: Heart Healthy Addtl Attending Provider Instructions: New Medicine: * You will likely be taking one or more of these medications: 1. Percocet - Take, as directed, when you need it, every four to six hours to control your pain. 2. Iron Sulfate - Take three times each day for the month after surgery to help you replace the blood lost during surgery. 3. Coumadin - Thins your blood to lessen the chance of forming a blood clot. The dose of this is different for each person and is based on your blood tests that are done twice a week. * The most common side effects of pain medicine and iron are nausea and constipation. If nausea or constipation is too much of a problem or if you have any questions about your new medicines or doses, call [facility] at . We will try to help you manage these issues. "VERY IMPORTANT TO READ AND REVIEW" Blood Clots and Blood Thinning Medicine: * You are given Coumadin during the immediate post-operative period to lessen the risk of blood clots forming in your legs and/or lungs. Coumadin is usually given for six weeks after surgery. * The prescription is for 2 mg tablets. At discharge, you should understand your dose and take it all at the same time every day, preferably after dinner. * You need to get your blood checked 1 - 2 times per week for six weeks or as directed. * If your dose needs to change, we will call you. Do not take your medication on the day of the blood test until we call you. Pain: * The immediate post-operative period after knee replacement surgery is often quite painful. * You are given a prescription for pain medicine. You should take it, as directed, when you need it, especially before physical therapy and before going to bed. Pain that interferes with sleep is very common and can last several months. * You will likely need pain medicine for the first four to six weeks. It will not stop all of the pain. The pain will lessen and as you feel better, you may change to milder pain medicine such as Tylenol. * The most common side effects of pain medicine are nausea and constipation, so don't take more than you need. Physical Therapy: * You will have physical therapy two or three times each week for four to six weeks after your surgery in order to regain your knee range of motion and to retrain your knee to work properly. * It is just as important to make sure you are getting your knee perfectly straight as it is to regain your knee bend. * Taking a pain pill an hour before therapy can help you have a more productive and comfortable therapy session if needed. Home Exercise: * You were shown a series of exercises (heel props, heel slides, etc.) in the hospital. Do these exercises three to four times each day including the exercises you were shown in physical therapy. Walking: * Get up and walk several times each day. For the first four weeks, try not to stand or walk for more than one hour at a time. If you do stand or walk for more than one hour, you will not hurt anything, but your knee and leg will likely swell. * As you feel comfortable, you may change from the walker or crutches to a cane and then to independent walking. SELF CARE INSTRUCTIONS AFTER TOTAL KNEE REPLACEMENT A. You may need to continue a physical therapy program after discharge from the hospital. There are several options available to you. Your doctor will assist you in selecting the best one for you. 1. An out-patient facility 2 to 3 times a week for therapy or home therapy. 2. Continue working on all exercises taught to you in the hospital. Your goals should be to increase bending of your knee to 90 degrees and beyond and to fully straighten your knee. B. You may progress at your own pace from walking with a walker or crutches to a cane; then to no assistive devices. C. Make walking a part of your daily routine. Be up as much as comfortable with rest periods throughout the day. Rest with leg elevation is very important. Use the ice wrap frequently for the first 3-4 weeks. D. There are no restrictions on activities. You may ride in a car, shop, participate in nursing coordinator and all social activities. E. Wear the long elastic stockings (MADDY hose) 20 hours a day for six weeks after surgery. They can be removed several times a day for laundering and for a shower. F. Do not place a pillow behind your knee when resting. A pillow at your ankle is okay. VERY IMPORTANT TO READ AND REVIEW A. Take Coumadin, Aspirin or Lovenox (blood thinning medications) as directed by your doctor. If on Coumadin, have a pro-time (blood test) drawn according to your doctor's instructions. This will tell the doctor how well the Coumadin is thinning your blood. 1. YOU WILL BE GIVEN AN ORDER AT DISCHARGE FOR PT/INR (BLOOD WORK). PLEASE HAVE THIS DONE INSTRUCTED. PLEASE CALL OUR OFFICE AFTER YOUR BLOODWORK IS COMPLETE SO WE CAN TRACK YOUR RESULTS. IF YOU ARE GOING TO OUTPATIENT PHYSICAL THERAPY, YOU WILL NEED TO GO TO OUTPATIENT TESTING TO HAVE IT DRAWN. B. There are a few signs you need to watch for after you are home. Call [facility] if you notice any of the followin. Increased severe knee pain. Some pain is expected especially when you exercise. 2. Increased swelling in your leg or knee; pain or swelling of the calf muscle in either lower leg. 3. Any fluid drainage from the incision. 4. Shortness of breath or chest pain. C. Please call [facility] at if you have any concerns or questions about your operation or recovery. The doctor or his nurse will return your call promptly. D. You must take antibiotics before dental work, bladder, bowel or other surgery. Call the office to obtain a prescription at least 2 days prior to your appointment. * CALL IF INCREASED PAIN, REDNESS, DRAINAGE OR FEVER GREATER THAT 101. * Sutures should be removed 12-14 days after surgery unless you are on chronic steroids, then it will be 14-18 days after surgery. Call your doctor if: * Temperature above 101 degrees F. * Pain not relieved by pain medicine ordered. * Increased drainage or redness from incision. * Notify your doctor with any questions or concerns. Please keep the INR between 1.8 and 2.2 Leave the knee bandages in place until Tuesday. They may be changed at that time if needed for soiling ice and elevate the knee frequently to reduce pain/swelling use the knee immobilizer when out of bed on Tuesday. It can be discontinued entirely on Tuesday morning. Do not sleep in it. Follow up in the office on May 18 at 3pm with Oscar for staple removal. Pending Studies at Discharge: Yes Studies:: bone pathology Stand-Alone Forms: My [facility] [place] Skilled Items Patient informed of condition?: Yes DNR: No Discharge Level of Care: Skilled Communicable Disease: No Discharge Prognosis: Stable Lines: None Urinary Catheter: No Medications and DC Order Prescriptions: New oxycodone-acetaminophen [Percocet] 5-325 mg tablet 2 tab PO Q6H PRN (Reason: pain) Qty: 20 0RF Rx Instructions: initial script warfarin 2 mg tablet 4 mg PO DAILY Qty: 60 0RF Continued levothyroxine 75 mcg tablet 75 mcg PO QAM Qty: 30 0RF [place]-3 350 mg-235 mg- 90 mg-597 mg Capsule,Delayed Release(Dr/Ec) 1 cap PO BID rosuvastatin 20 mg Tablet 20 mg PO QAM oxycodone-acetaminophen 5-325 mg Tablet 1 tab PO DAILY PRN (Reason: Pain) Discharge Orders: Discharge Order (Routine); Ordered 05/05/23 Ordered By: Duke Bliss Admission Data Admit Date/Time: 05/04/23 10:41 Attending Provider: Duke Bliss Admit Provider: Duke Bliss Primary Care Provider: Ileana Armstrong Other Interventions: Discharge Summary Assessment (RN) Last Done: 05/06/23 09:44 Addendum May 10, 2023 12:47 patient required transfer to [facility] based on the fact that she did not qualify for [facility]. Over the leg to discharge no further medical care was required everything was the same.
== END 2023-05-06 13:10 ==
LOC: ASU 06:49 → 3E 06:49